=== PATIENT | male | born 1950 | race Caucasian/White ===

== ENCOUNTER 2018-12-24 12:11 | Day surgery (SDC) | payer MEDICARE, OTHER ==
[2018-12-23 11:18] LABS: BASOPHILS # (AUTO) 0.1 X10'3 (0-0.2); BASOPHILS % (AUTO) 1.2 % (0-1); EOSINOPHILS # (AUTO) 0.2 X10'3 (0-0.9); EOSINOPHILS % (AUTO) 3.9 % (0-6); LYMPHOCYTES # (AUTO) 1.7 X10'3 (1.1-4.8); LYMPHOCYTES % (AUTO) 30.3 % (21-51); MEAN CORPUSCULAR HEMOGLOBIN 30.6 PG (27.0-31.0); MEAN CORPUSCULAR HGB CONC 33.8 g/dL (33.0-36.5); MEAN CORPUSCULAR VOLUME 90.5 FL (78-98); MEAN PLATELET VOLUME 7.7 FL (7.4-10.4); MONOCYTES # (AUTO) 0.5 X10'3 (0-0.9); MONOCYTES % (AUTO) 8.9 % (2-12); NEUTROPHILS # (AUTO) 3.2 X10'3 (1.8-7.7); NEUTROPHILS % (AUTO) 55.7 % (42-75); PRE OP HEMATOCRIT 39.9 % (42.0-52.0); PRE OP HEMOGLOBIN 13.5 g/dL (14.0-17.9); PRE OP PLATELET COUNT 238 X10'3 (140-440); RED BLOOD COUNT 4.41 X10'6 (4.70-6.10); RED CELL DISTRIBUTION WIDTH 13.6 % (11.5-14.5)
[2018-12-23 11:29] LABS: CLARITY,URINE CLEAR (Clear); COLOR,URINE STRAW (Yellow); GLUCOSE, URINE NEGATIVE (Neg); KETONES,URINE NEGATIVE (Neg); LEUKOCYTE ESTERASE ,URINE NEGATIVE (Neg); NITRITES, URINE NEGATIVE (Neg); OCCULT BLOOD,URINE SMALL (Neg); PROTEIN,URINE NEGATIVE (Neg); UROBILINOGEN,URINE 0.2 E.U/dL (0.2-1.0)
[2018-12-23 11:31] LABS: UA COLLECTION TYPE CLN CATCH MIDSTREAM
[2018-12-23 11:36] LABS: ALBUMIN 3.5 G/DL (3.4-5.0); ALBUMIN/GLOBULIN RATIO 0.9 (1.1-1.5); ALKALINE PHOSPHATASE 64 IU/L (46-116); BLOOD UREA NITROGEN 20 MG/DL (7-18); BUN/CREATININE RATIO 20.4 (5.4-32.0); CALCIUM 9.3 MG/DL (8.5-10.1); CHLORIDE 108 MMOL/L (99-107); CREATININE 0.98 MG/DL (0.60-1.10); PRE OP ALT 22 U/L (30-65); PRE OP ANION GAP 9 (8-16); PRE OP AST 21 U/L (10-37); PRE OP BILIRUB, TOTAL 0.4 MG/DL (0.0-1.0); PRE OP GLUCOSE 85 MG/DL (70-104); PRE OP POTASSIUM 4.1 MMOL/L (3.4-5.1); PRE OP SODIUM 144 MMOL/L (135-145); TOTAL CARBON DIOXIDE 27.2 MMOL/L (24-32); TOTAL PROTEIN 7.3 G/DL (6.4-8.2); eGFR 76 ML/MIN
[2018-12-23 11:38] LABS: PRE OP PROTIME 10.5 SECONDS (9.0-12.0)
[2018-12-23 11:50] LABS: BACTERIA,URINE NONE SEEN /HPF (Neg); MUCUS STRANDS NONE SEEN /LPF (Neg); SQUAMOUS EPITHELIAL CELL,UR NONE SEEN /LPF (FEW); WBC,URINE NONE SEEN /HPF (0-4)
[~2018-12-24] VITALS: Ht 175.3 cm; Wt 86.5 kg
[~2018-12-24 12:11] MED LIST: APIX5TAB3 PO; CALC-854 PO; DOCUMENT DATE & TIME OF BETA-BLOCKER PO ONE; FLEC50TA PO; HYDR-3972 PO; LEUP7.5D4 IM; MEGE40TA27 PO; METO25TA6 PO; OMEG1CAP46 PO; OMEP20TA5 PO; SERT50TA PO; TAMS0.4C32 PO; cefazolin/dext.iso 2gm/100 ML IV ONE; famotidine 20mg tablet PO ONE; ringers solution, lacted 1,000 ML IV SCH
[2018-12-24 12:30] VITALS: BP_SYST 123; BP_SYST 71; BP_DIAS 71
[2018-12-24] MEDS ORDERED: BUPIVAcaine/PF 2.5mg/ml (0.25%) 10ml vial ONE (13:59)
[2018-12-24] MEDS ORDERED: LIDOcaine 1% 30ml preserv. free vial ONE (13:59)
[2018-12-24] MEDS ORDERED: fentaNYL/PF 50MCG/1 ML 2ML syringe ONE (14:50)
[2018-12-24] MEDS ORDERED: MIDAZolam 5mg/5ml vial ONE (14:51)
[2018-12-24] MEDS ORDERED: ringers solution, lacted 1,000 ML IV SCH (15:19)
[2018-12-24] MEDS ORDERED: meperidine/PF 25mg/ml syringe IV PRN ×3 (15:20)
[2018-12-24] MEDS ORDERED: ondansetron/PF 4mg/2ml inj IV PRN (15:20)
[2018-12-24] MEDS ORDERED: proCHLORperazine 10 MG/2 ml inj IV PRN (15:20)
[2018-12-24] MEDS ORDERED: morphine 4 MG/ML inj SYRINge IV PRN ×2 (15:20)
[2018-12-24 15:31] VITALS: BP 138/72
--- NOTE | 2018-12-24 15:31 | NUR ---
Received from OR via , accompanied by Anesthesiologist DR FLORES and report given by Anesthesiolgist. AWAKE AND JING PAIN. VITALS STABLE. DRESSING DI.
[2018-12-24 15:41] VITALS: BP 121/62
[2018-12-24 15:51] VITALS: BP 124/67
[2018-12-24 16:01] VITALS: BP 132/66
--- NOTE | 2018-12-24 16:21 | NUR ---
AWAKE AND ORIENTED. VITALS STABLE. DRESSING DI. JING PAIN. HOME WITH A FRIEND AT THIS TIME.
== END 2018-12-24 16:24 | disposition home or self-care (01) ==
LOC: PAS 12:11
PROVIDERS: ATTEND Surgery
DX: L72.3 Sebaceous cyst (principal); L08.89 Other specified local infections of the skin and subcutaneous tissue; I48.91 Unspecified atrial fibrillation; F32.9 Major depressive disorder, single episode, unspecified; K21.9 Gastro-esophageal reflux disease without esophagitis; Z87.891 Personal history of nicotine dependence; Z79.899 Other long term (current) drug therapy
CPT/HCPCS: 11403; 36415; 80053; 81001; 82948; 85025; 85610; 85730; 93005; A6449; J0690; J2250; J3010; J3490; 88305; A7000; J7120

== ENCOUNTER 2019-06-24 08:12 | Emergency (ER) | payer MEDICARE, OTHER ==
[~2019-06-24] VITALS: Ht 175.3 cm; Wt 80.9 kg
[~2019-06-24 08:12] MED LIST changes: -DOCUMENT DATE & TIME OF BETA-BLOCKER PO ONE; -cefazolin/dext.iso 2gm/100 ML IV ONE; -famotidine 20mg tablet PO ONE; -ringers solution, lacted 1,000 ML IV SCH
[2019-06-24] MEDS ORDERED: adenosine 3mg/ml 2ml vial IV ONE ×2 (08:25)
[2019-06-24] MEDS ORDERED: normal saline 1000ml 1,000 ML IV ONE (08:25)
[2019-06-24] MEDS ORDERED: magnesium 2GM in 50ml NS 50 ML IV ONE (08:35)
[2019-06-24 08:45] LABS: WHITE BLOOD COUNT 7.9 X10'3 (4.5-11.0)
[2019-06-24 08:46] LABS: BASOPHILS # (AUTO) 0.1 X10'3 (0-0.2); BASOPHILS % (AUTO) 1.3 % (0-1); EOSINOPHILS # (AUTO) 0.2 X10'3 (0-0.9); EOSINOPHILS % (AUTO) 2.1 % (0-6); HEMATOCRIT 42.6 % (42.0-52.0); HEMOGLOBIN 14.5 g/dl (14.0-17.9); LYMPHOCYTES # (AUTO) 2.2 X10'3 (1.1-4.8); LYMPHOCYTES % (AUTO) 28.2 % (21-51); MEAN CORPUSCULAR HEMOGLOBIN 31.7 PG (27.0-31.0); MEAN CORPUSCULAR HGB CONC 34.1 g/dL (33.0-36.5); MEAN PLATELET VOLUME 7.6 FL (7.4-10.4); MONOCYTES # (AUTO) 0.6 X10'3 (0-0.9); MONOCYTES % (AUTO) 7.2 % (2-12); NEUTROPHILS # (AUTO) 4.8 X10'3 (1.8-7.7); NEUTROPHILS % (AUTO) 61.2 % (42-75); PLATELET COUNT 245 X10'3 (140-440); RED BLOOD COUNT 4.58 X10'6 (4.70-6.10); RED CELL DISTRIBUTION WIDTH 13.9 % (11.5-14.5)
[2019-06-24 08:58] LABS: ALANINE AMINOTRANSFERASE 19 U/L (12-78); ALBUMIN 3.8 G/DL (3.4-5.0); ALBUMIN/GLOBULIN RATIO 1.1 (1.1-1.5); ALKALINE PHOSPHATASE 67 IU/L (46-116); ANION GAP 14 (8-16); ASPARTATE AMINO TRANSFERASE 9 U/L (10-37); BILIRUBIN,TOTAL 0.4 MG/DL (0.1-1.0); BLOOD UREA NITROGEN 18 MG/DL (7-18); BUN/CREATININE RATIO 12.6 (5.4-32.0); CALCIUM 8.8 MG/DL (8.5-10.1); CHLORIDE 106 MMOL/L (99-107); CREATININE 1.43 MG/DL (0.60-1.10); GLUCOSE 204 MG/DL (70-104); MAGNESIUM 1.9 MG/DL (1.5-2.4); POTASSIUM 4.1 MMOL/L (3.5-5.1); SODIUM 139 MMOL/L (135-145); TOTAL CARBON DIOXIDE 19.1 MMOL/L (24-32); TOTAL PROTEIN 7.4 G/DL (6.4-8.2); eGFR 49 ML/MIN
[2019-06-24] MEDS ORDERED: normal saline 1000ML IV soln IVB ONE (09:20)
--- NOTE | 2019-06-24 09:40 | NUR ---
BREAKING PRIMARY RN, PT IS UP TO THE BR HAVING BM
[2019-06-24 10:39] VITALS: BP 107/71
== END 2019-06-24 10:41 | disposition home or self-care (01) ==
LOC: ER 08:13
DX: I47.1 Supraventricular tachycardia (principal); R42 Dizziness and giddiness; E78.00 Pure hypercholesterolemia, unspecified; K21.9 Gastro-esophageal reflux disease without esophagitis; G89.29 Other chronic pain; Z98.890 Other specified postprocedural states; Z79.899 Other long term (current) drug therapy
CPT/HCPCS: 36415; 71045; 80053; 83735; 85025; 93005; 96361; 96365; 99284; J3475; J7030; J7040

== ENCOUNTER → 2019-12-02 | Day surgery (SDC) | payer MEDICARE, OTHER ==
[2019-11-28 15:37] LABS: BASOPHILS # (AUTO) 0.1 X10'3 (0-0.2); BASOPHILS % (AUTO) 1.3 % (0-1); CLARITY,URINE CLEAR (Clear); COLOR,URINE YELLOW (Yellow); EOSINOPHILS # (AUTO) 0.2 X10'3 (0-0.9); EOSINOPHILS % (AUTO) 3.4 % (0-6); GLUCOSE, URINE NEGATIVE (Neg); HEMATOCRIT 37.5 % (42.0-52.0); HEMOGLOBIN 13.2 g/dl (14.0-17.9); KETONES,URINE NEGATIVE (Neg); LEUKOCYTE ESTERASE ,URINE NEGATIVE (Neg); LYMPHOCYTES # (AUTO) 2.8 X10'3 (1.1-4.8); LYMPHOCYTES % (AUTO) 39.3 % (21-51); MEAN CORPUSCULAR HEMOGLOBIN 31.9 PG (27.0-31.0); MEAN CORPUSCULAR HGB CONC 35.1 g/dL (33.0-36.5); MEAN CORPUSCULAR VOLUME 90.8 FL (78-98); MEAN PLATELET VOLUME 6.9 FL (7.4-10.4); MONOCYTES # (AUTO) 0.7 X10'3 (0-0.9); NEUTROPHILS # (AUTO) 3.3 X10'3 (1.8-7.7); NITRITES, URINE NEGATIVE (Neg); OCCULT BLOOD,URINE MODERATE (Neg); PH,URINE 5.5 (4.8-8.0); PLATELET COUNT 223 X10'3 (140-440); PROTEIN,URINE NEGATIVE (Neg); RED BLOOD COUNT 4.13 X10'6 (4.70-6.10); UROBILINOGEN,URINE 0.2 E.U/dL (0.2-1.0); WHITE BLOOD COUNT 7.2 X10'3 (4.5-11.0)
[2019-11-28 15:41] LABS: UA COLLECTION TYPE NON-SPECIFIED
[2019-11-28 15:42] LABS: BACTERIA,URINE NONE SEEN /HPF (Neg); MUCUS STRANDS FEW /LPF (Neg); RBC,URINE 0-2 /HPF (0-2); SQUAMOUS EPITHELIAL CELL,UR FEW /LPF (FEW); WBC,URINE NONE SEEN /HPF (0-4)
[2019-11-28 15:52] LABS: ALANINE AMINOTRANSFERASE 19 U/L (12-78); ALBUMIN 3.8 G/DL (3.4-5.0); ALKALINE PHOSPHATASE 71 IU/L (46-116); ANION GAP 6 (8-16); ASPARTATE AMINO TRANSFERASE 12 U/L (10-37); BILIRUBIN,TOTAL 0.4 MG/DL (0.1-1.0); BLOOD UREA NITROGEN 11 MG/DL (7-18); BUN/CREATININE RATIO 10.4 (5.4-32.0); CHLORIDE 107 MMOL/L (99-107); CREATININE 1.06 MG/DL (0.60-1.10); GLUCOSE 101 MG/DL (70-104); POTASSIUM 3.6 MMOL/L (3.5-5.1); PRE OP PROTIME 10.5 SECONDS (9.0-12.0); SODIUM 142 MMOL/L (135-145); TOTAL CARBON DIOXIDE 29.5 MMOL/L (24-32); TOTAL PROTEIN 7.5 G/DL (6.4-8.2); eGFR 69 ML/MIN
[2019-12-02] VITALS (9 sets, daily range): BP systolic 110–135; BP diastolic 49–72
[~2019-12-02] VITALS: Ht 175.3 cm; Wt 86.2 kg
[~2019-12-02] MED LIST changes: -APIX5TAB3 PO; +APIX5TAB5 PO; +CHOL100046 PO; +DOCUMENT DATE & TIME OF BETA-BLOCKER PO ONE; +EPI SQ ONE; +EPINEPHRINE SQ ONE; +HYDROmorphone inj. 0.5 MG/0.5 ML DISP.SYRIN IV PRN; +LIDOCAINE 1% SQ ONE; +LIDOCAINE 1.5% SQ ONE; +LIDOcaine 1% (10mg/ml) 2ml vial ONE; +LIDOcaine 2% (20mg/ml) 5ml vial ONE; -MEGE40TA27 PO; +MEGE40TA5 PO; +NORMAL SALINE SQ ONE; +SODIUM CHLORIDE SQ ONE; +acetaminophen 1000 MG/100ml vial IV ONE; +cefazolin/dext.iso 2gm/50ml 50 ML IV ONE; +ePHEDrine 50MG/ML INJ. ONE; +famotidine 20mg tablet PO ONE; +fentaNYL/PF 50MCG/1 ML 2ML syringe ONE; +heparin sodium, porcine/PF 100unit/ml 5ML syringe ONE; +meperidine/PF 25mg/ml syringe IV PRN; +midazolam 2 mg/2 ml injection ONE; +morphine 2 MG/ML inj. syringe IV PRN; +morphine 4 MG/ML inj SYRINge IV PRN; +ondansetron/PF 4mg/2ml inj IV PRN; +proCHLORperazine 10 MG/2 ml inj IV PRN; +propofol inj 20 ML IV ONE; +ringers solution, lacted 1,000 ML IV SCH; +sevoflurane 250ml liquid IH ONE
--- NOTE | 2019-12-02 09:47 | NUR ---
Received from OR via , accompanied by Anesthesiologist DR PERDOMO and report given by Anesthesiolgist. AWAKENS TO VOICE. VITALS STABLE. DRESSING DI. JING PAIN.
--- NOTE | 2019-12-02 11:07 | NUR ---
AWAKE AND ORIENTED. VITALS STABLE. DRESSING DI. JING PAIN. HOME WITH A FRIEND AT THIS TIME.
== END | disposition home or self-care (01) ==
LOC: PAS 06:10
PROVIDERS: ATTEND Surgery
DX: I83.891 Varicose veins of right lower extremity with other complications (principal); M79.604 Pain in right leg; Z79.899 Other long term (current) drug therapy; M19.90 Unspecified osteoarthritis, unspecified site; I48.91 Unspecified atrial fibrillation
CPT/HCPCS: 36415; 36475; 76942; 80053; 81001; 82948; 85025; 85610; 85730; 93971; C1769; C1888; C1894; J0131; J1642; J2001; J2250; J2704; J3010; A4618; A6258; A6446; A6449; A7000; J7120

== ENCOUNTER 2020-01-28 06:02 | Day surgery (SDC) | payer MEDICARE, OTHER ==
[2020-01-27 09:43] LABS: BASOPHILS # (AUTO) 0.1 X10'3 (0-0.2); BASOPHILS % (AUTO) 1.2 % (0-1); EOSINOPHILS # (AUTO) 0.2 X10'3 (0-0.9); EOSINOPHILS % (AUTO) 3.5 % (0-6); HEMATOCRIT 38.2 % (42.0-52.0); LYMPHOCYTES # (AUTO) 1.8 X10'3 (1.1-4.8); LYMPHOCYTES % (AUTO) 31.2 % (21-51); MEAN CORPUSCULAR HEMOGLOBIN 31.6 PG (27.0-31.0); MEAN CORPUSCULAR HGB CONC 33.9 g/dL (33.0-36.5); MEAN CORPUSCULAR VOLUME 93.1 FL (78-98); MEAN PLATELET VOLUME 7.3 FL (7.4-10.4); MONOCYTES # (AUTO) 0.5 X10'3 (0-0.9); MONOCYTES % (AUTO) 8.8 % (2-12); NEUTROPHILS # (AUTO) 3.2 X10'3 (1.8-7.7); NEUTROPHILS % (AUTO) 55.3 % (42-75); PLATELET COUNT 188 X10'3 (140-440); RED BLOOD COUNT 4.11 X10'6 (4.70-6.10); RED CELL DISTRIBUTION WIDTH 13.3 % (11.5-14.5); WHITE BLOOD COUNT 5.7 X10'3 (4.5-11.0)
[2020-01-27 09:58] LABS: ALBUMIN 3.4 G/DL (3.4-5.0); ANION GAP 7 (8-16); BLOOD UREA NITROGEN 19 MG/DL (7-18); BUN/CREATININE RATIO 15.7 (5.4-32.0); CALCIUM 8.8 MG/DL (8.5-10.1); CHLORIDE 107 MMOL/L (99-107); CREATININE 1.21 MG/DL (0.60-1.10); GLUCOSE 92 MG/DL (70-104); POTASSIUM 4.1 MMOL/L (3.5-5.1); SODIUM 141 MMOL/L (135-145); TOTAL CARBON DIOXIDE 27.1 MMOL/L (24-32); eGFR 59 ML/MIN
[2020-01-27 09:59] LABS: PARTIAL THROMBOPLASTIN TIME 27 SECONDS (22-32)
[2020-01-28] VITALS (13 sets, daily range): BP systolic 106–131; BP diastolic 41–59
[~2020-01-28] VITALS: Ht 175.3 cm; Wt 91.0 kg
[~2020-01-28 06:02] MED LIST changes: -DOCUMENT DATE & TIME OF BETA-BLOCKER PO ONE; -EPI SQ ONE; -EPINEPHRINE SQ ONE; -HYDROmorphone inj. 0.5 MG/0.5 ML DISP.SYRIN IV PRN; -LIDOCAINE 1% SQ ONE; -LIDOCAINE 1.5% SQ ONE; -LIDOcaine 1% (10mg/ml) 2ml vial ONE; -LIDOcaine 2% (20mg/ml) 5ml vial ONE; -NORMAL SALINE SQ ONE; -SODIUM CHLORIDE SQ ONE; -acetaminophen 1000 MG/100ml vial IV ONE; -cefazolin/dext.iso 2gm/50ml 50 ML IV ONE; -ePHEDrine 50MG/ML INJ. ONE; -famotidine 20mg tablet PO ONE; -fentaNYL/PF 50MCG/1 ML 2ML syringe ONE; -heparin sodium, porcine/PF 100unit/ml 5ML syringe ONE; -meperidine/PF 25mg/ml syringe IV PRN; -midazolam 2 mg/2 ml injection ONE; -morphine 2 MG/ML inj. syringe IV PRN; -morphine 4 MG/ML inj SYRINge IV PRN; -ondansetron/PF 4mg/2ml inj IV PRN; -proCHLORperazine 10 MG/2 ml inj IV PRN; -propofol inj 20 ML IV ONE; -ringers solution, lacted 1,000 ML IV SCH; -sevoflurane 250ml liquid IH ONE
[2020-01-28] MEDS ORDERED: diphenhydrAMINE 25mg capsule PO PRN (06:20)
[2020-01-28] MEDS ORDERED: LORazepam 0.5 MG tablet PO PRN (06:20)
[2020-01-28] MEDS ORDERED: normal saline 1,000 ML IV SCH (06:40)
[2020-01-28] MEDS ORDERED: acetylcysteine 200 MG/ml 4ml vial PO PRN (06:40)
[2020-01-28] MEDS ORDERED: LIDOcaine/PRILOcaine 5gm cream TP ONE (06:40)
[2020-01-28] MEDS ORDERED: sodium bicarbonate (8.4%) inj. 75 ML in dextrose 5%-water 500 ML IV ONE (06:40)
[2020-01-28] MEDS ORDERED: verapamil 2.5 mg/ml inj IV ONE (07:33)
[2020-01-28] MEDS ORDERED: nitroGLYCERIN-Tridil 50MG/D5W 250 ML IV ONE (07:33)
[2020-01-28] MEDS ORDERED: midazolam 2 mg/2 ml injection ONE (07:34)
[2020-01-28] MEDS ORDERED: iohexol 350MG/ML 100ml bottle IV ONE (07:34)
[2020-01-28] MEDS ORDERED: heparin 1,000unit/ml 10ml vial 10 ML ONE (07:34)
[2020-01-28] MEDS ORDERED: iohexol 350 MG/ML 50ML vial IV ONE (07:34)
[2020-01-28] MEDS ORDERED: LIDOcaine 1% (10mg/ml)w/preservative injection 20ml MDV ONE (07:34)
[2020-01-28] MEDS ORDERED: fentaNYL/PF 50MCG/1 ML 2ML syringe ONE (07:34)
[2020-01-28 09:36] LABS: ISTAT HGB ART 10.9 g/dl (14.0-18.0); ISTAT Hct ART 32 %PCV (42-52); ISTAT O2 SATURATION ARTERIAL 94 % (95-98); ISTAT SOURCE ART
[2020-01-28 09:36] LABS: ISTAT Hct MIX 33 %PCV (42-52); ISTAT O2 SATURATION MIX VENOUS 69 % (60-80); ISTAT SOURCE MIX
== END 2020-01-28 15:00 | disposition home or self-care (01) ==
LOC: U 06:02 → MED 3N 06:02 → U 15:00
PROVIDERS: ATTEND Internal Medicine Cardiovascular Disease
DX: R94.39 Abnormal result of other cardiovascular function study (principal); I25.10 Atherosclerotic heart disease of native coronary artery without angina pectoris; I10 Essential (primary) hypertension; E78.5 Hyperlipidemia, unspecified; I48.0 Paroxysmal atrial fibrillation; K21.9 Gastro-esophageal reflux disease without esophagitis; I35.0 Nonrheumatic aortic (valve) stenosis; I47.1 Supraventricular tachycardia; Z85.46 Personal history of malignant neoplasm of prostate; Z79.899 Other long term (current) drug therapy; Z98.890 Other specified postprocedural states; Z95.1 Presence of aortocoronary bypass graft
CPT/HCPCS: 36415; 80048; 82803; 85014; 85025; 85610; 85730; 93005; 93460; 93567; 99152; 99153; C1769; C1894; J1644; J2001; J2250; J3010; J7030; Q0163; Q9967; A5120; J3490

== ENCOUNTER 2020-09-28 08:46 | Outpatient (CLI) | payer MEDICARE, OTHER ==
[~2020-09-28 08:46] MED LIST changes: -LEUP7.5D4 IM; -MEGE40TA5 PO
== END 2020-09-28 23:59 | disposition home or self-care (01) ==
LOC: RAD 08:46
PROVIDERS: ATTEND Family Medicine
DX: M17.12 Unilateral primary osteoarthritis, left knee (principal); M48.061 Spinal stenosis, lumbar region without neurogenic claudication; M47.816 Spondylosis without myelopathy or radiculopathy, lumbar region
CPT/HCPCS: 72148; 73560

== ENCOUNTER 2020-10-20 11:08 | Emergency (ER) | payer MEDICARE, OTHER ==
[~2020-10-20] VITALS: Ht 175.3 cm; Wt 88.6 kg
[2020-10-20 11:29] VITALS: BP 112/66
[2020-10-20] MEDS ORDERED: BENZ-16 PO (13:07)
== END 2020-10-20 13:50 | disposition home or self-care (01) ==
LOC: ER 11:09
DX: U07.1 COVID-19 (principal); J12.9 Viral pneumonia, unspecified; R51.9 Headache, unspecified; R61 Generalized hyperhidrosis; R05 Cough; R53.83 Other fatigue; R50.9 Fever, unspecified; E78.00 Pure hypercholesterolemia, unspecified; K21.9 Gastro-esophageal reflux disease without esophagitis; G89.29 Other chronic pain; Z85.9 Personal history of malignant neoplasm, unspecified; Z98.890 Other specified postprocedural states; Z79.899 Other long term (current) drug therapy
CPT/HCPCS: 71045; 99283

== ENCOUNTER 2022-02-20 09:01 | Inpatient (IN) | payer MEDICARE, OTHER ==
[~2022-02-20] VITALS: Ht 175.3 cm; Wt 90.9 kg
[~2022-02-20 09:01] MED LIST changes: +LOP25T PO; -METO25TA6 PO; +OMEP20TA43 PO; -OMEP20TA5 PO
[2022-02-20] MEDS ORDERED: morphine 4 MG/ML inj SYRINge IV ONE (10:05)
[2022-02-20] MEDS ORDERED: ondansetron/PF 4mg/2ml inj IV ONE (10:05)
[2022-02-20] MEDS ORDERED: famotidine/PF 10 mg/ml inj IV ONE (10:05)
[2022-02-20] MEDS ORDERED: pantoprazole 40 MG vial IV ONE (10:05)
[2022-02-20 10:45] LABS: BASOPHILS % (AUTO) 0.2 % (0-1); EOSINOPHILS % (AUTO) 0.4 % (0-6); HEMATOCRIT 39.2 % (42.0-52.0); HEMOGLOBIN 13.4 g/dl (14.0-17.9); LYMPHOCYTES # (AUTO) 0.8 X10'3 (1.1-4.8); LYMPHOCYTES % (AUTO) 9.1 % (21-51); MEAN CORPUSCULAR HEMOGLOBIN 31.3 PG (27.0-31.0); MEAN PLATELET VOLUME 7.3 FL (7.4-10.4); MONOCYTES # (AUTO) 0.5 X10'3 (0-0.9); MONOCYTES % (AUTO) 5.4 % (2-12); NEUTROPHILS # (AUTO) 7.5 X10'3 (1.8-7.7); NEUTROPHILS % (AUTO) 84.9 % (42-75); PLATELET COUNT 172 X10'3 (140-440); RED BLOOD COUNT 4.27 X10'6 (4.70-6.10); RED CELL DISTRIBUTION WIDTH 14.9 % (11.5-14.5); WHITE BLOOD COUNT 8.8 X10'3 (4.5-11.0)
[2022-02-20 10:57] LABS: ALANINE AMINOTRANSFERASE 53 U/L (12-78); ALBUMIN 3.6 G/DL (3.4-5.0); ALBUMIN/GLOBULIN RATIO 1.1 (1.1-1.5); ALKALINE PHOSPHATASE 46 IU/L (46-116); AMYLASE 74 U/L (25-115); ANION GAP 13 (8-16); ASPARTATE AMINO TRANSFERASE 61 U/L (10-37); BILIRUBIN,TOTAL 2.9 MG/DL (0.1-1.0); BLOOD UREA NITROGEN 16 MG/DL (7-18); BUN/CREATININE RATIO 14.4 (5.4-32.0); CALCIUM 9.3 MG/DL (8.5-10.1); CHLORIDE 102 MMOL/L (99-107); CREATININE 1.11 MG/DL (0.60-1.10); ETHANOL < 0.010 GM/DL (0.0-0.010); GLUCOSE 155 MG/DL (70-104); LIPASE 501 U/L (73-393); SODIUM 139 MMOL/L (135-145); TOTAL PROTEIN 6.9 G/DL (6.4-8.2); eGFR 65 ML/MIN
[2022-02-20] MEDS ORDERED: pantoprazole 40MG/NS 100ML BAG 100 ML IV ONE (12:00)
[2022-02-20] MEDS: POTASSIUM BICARB 20meq eff tab 20 MEQ TABLET.EFF PO SCH (12:11)
[2022-02-20 12:23] LABS: UA COLLECTION TYPE URINAL
[2022-02-20 12:24] LABS: CLARITY,URINE CLEAR (Clear); COLOR,URINE YELLOW (Yellow); GLUCOSE, URINE NEGATIVE (Neg); KETONES,URINE TRACE mg/dl (Neg); LEUKOCYTE ESTERASE ,URINE NEGATIVE (Neg); NITRITES, URINE NEGATIVE (Neg); OCCULT BLOOD,URINE MODERATE (Neg); PH,URINE 6.5 (4.8-8.0); PROTEIN,URINE TRACE mg/dl (Neg)
[2022-02-20 12:44] LABS: BACTERIA,URINE NONE SEEN /HPF (Neg); SQUAMOUS EPITHELIAL CELL,UR FEW /LPF (FEW); WBC,URINE 0-4 /HPF (0-4)
[2022-02-20] MEDS ORDERED: magnesium 4gm in 100ml NS 100 ML IV PRN (12:55)
[2022-02-20] MEDS ORDERED: magnesium hydroxide 30ml (MOM) UD suspension PO PRN (12:55)
[2022-02-20] MEDS ORDERED: magnesium 2GM in 50ml NS 50 ML IV PRN (12:55)
[2022-02-20] MEDS ORDERED: mag hydrox/Alum hydrox/simeth 30ml oral suspension PO PRN (12:55)
[2022-02-20] MEDS ORDERED: POTASSIUM BICARB 20meq eff tab 20 MEQ TABLET.EFF PO PRN ×2 (12:55)
[2022-02-20] MEDS ORDERED: magnesium Cl slow-release 64mg tablet PO PRN (12:55)
[2022-02-20] MEDS ORDERED: acetaminophen 325mg tablet PO PRN (12:55)
[2022-02-20] MEDS ORDERED: ondansetron/PF 4mg/2ml inj IV PRN (12:55)
[2022-02-20 13:44] LABS: MAGNESIUM 1.9 MG/DL (1.5-2.4); POTASSIUM 3.3 MMOL/L (3.5-5.1)
[2022-02-20] MEDS ORDERED: FENO54TA PO (13:45)
[2022-02-20] MEDS: potassium Cl 20mEq in NS 1,000 ML IV SCH ×2 (15:15→21:26)
[2022-02-20] MEDS ORDERED: dextrose 50%-water 50ml dispensing syringe IV PRN (16:10)
[2022-02-20] MEDS ORDERED: LORazepam 2 mg/ml vial IV PRN (16:10)
[2022-02-20] MEDS ORDERED: haloperidol 5mg tablet PO PRN (16:10)
[2022-02-20] MEDS ORDERED: haloperidol lactate 5mg/ml inj IM PRN (16:10)
[2022-02-20] MEDS ORDERED: HYDROcodone/acetaminophen 10/325mg tab PO PRN (18:35)
--- NOTE | 2022-02-20 19:45 | NUR ---
Patient in room PCU 3019. I have received report from Dagoberto, in ER and had the opportunity to ask questions and assume patient care.
[2022-02-20 20:00] VITALS: BP 131/56
[2022-02-20] MEDS: K and/or MAG REPLACEMENT MC SCH (20:00)
[2022-02-20] MEDS: flecainide 50mg tablet PO SCH (20:00)
[2022-02-20] MEDS: docusate sod 100mg capsule PO SCH (20:00)
--- NOTE | 2022-02-20 20:00 | NUR ---
Patient arrived to room 3019 from ER via gurney. Patient stable. Alert and oriented x 4. No distress noted.
[2022-02-20] MEDS: tamsulosin 0.4mg capsule PO SCH (21:24)
[2022-02-20] MEDS: metoprolol tartrate 25mg tablet PO SCH (21:25)
[2022-02-20] MEDS: thiamine 100mg/ml 2ml inj. IV SCH (21:26)
[2022-02-20] MEDS: pantoprazole 40MG/NS 100ML BAG 100 ML IV SCH (21:26)
[2022-02-20] MEDS: potassium CL 10mEq/100ml bag 100 ML IV PRN (21:41)
[2022-02-20 22:00] VITALS: BP 119/94
--- NOTE | 2022-02-20 22:37 | NUR ---
Called Dr. Rubio regarding holding patient's Flecanide Acetate. Instructed by Dr. Rubio to hold Flecanide Acetate until patient's Potassium is in normal range.
[2022-02-21] VITALS (11 sets, daily range): BP systolic 107–179; BP diastolic 47–76
[2022-02-21] MEDS: potassium CL 10mEq/100ml bag 100 ML IV PRN ×3 (00:15→20:41)
[2022-02-21] MEDS ORDERED: nicotine prolacrilex 2mg gum BC PRN (00:45)
[2022-02-21] MEDS: pantoprazole 40MG/NS 100ML BAG 100 ML IV SCH ×4 (02:09→23:16)
[2022-02-21 07:14] LABS: BASOPHILS % (AUTO) 0.9 % (0-1); EOSINOPHILS # (AUTO) 0.2 X10'3 (0-0.9); EOSINOPHILS % (AUTO) 3.1 % (0-6); HEMOGLOBIN 11.8 g/dl (14.0-17.9); LYMPHOCYTES % (AUTO) 20.2 % (21-51); MEAN CORPUSCULAR HEMOGLOBIN 31.3 PG (27.0-31.0); MEAN CORPUSCULAR HGB CONC 33.7 g/dL (33.0-36.5); MEAN CORPUSCULAR VOLUME 92.9 FL (78-98); MEAN PLATELET VOLUME 7.5 FL (7.4-10.4); MONOCYTES # (AUTO) 0.3 X10'3 (0-0.9); MONOCYTES % (AUTO) 7.2 % (2-12); NEUTROPHILS # (AUTO) 3.3 X10'3 (1.8-7.7); NEUTROPHILS % (AUTO) 68.6 % (42-75); PLATELET COUNT 128 X10'3 (140-440); RED BLOOD COUNT 3.77 X10'6 (4.70-6.10); RED CELL DISTRIBUTION WIDTH 15.3 % (11.5-14.5); WHITE BLOOD COUNT 4.8 X10'3 (4.5-11.0)
[2022-02-21 07:32] LABS: ALANINE AMINOTRANSFERASE 52 U/L (12-78); ALBUMIN/GLOBULIN RATIO 1.1 (1.1-1.5); ALKALINE PHOSPHATASE 39 IU/L (46-116); ANION GAP 10 (8-16); ASPARTATE AMINO TRANSFERASE 54 U/L (10-37); BILIRUBIN,TOTAL 1.6 MG/DL (0.1-1.0); BLOOD UREA NITROGEN 13 MG/DL (7-18); BUN/CREATININE RATIO 13.1 (5.4-32.0); CALCIUM 8.1 MG/DL (8.5-10.1); CHLORIDE 107 MMOL/L (99-107); CREATININE 0.99 MG/DL (0.60-1.10); GLUCOSE 97 MG/DL (70-104); POTASSIUM 3.3 MMOL/L (3.5-5.1); SODIUM 140 MMOL/L (135-145); TOTAL PROTEIN 5.8 G/DL (6.4-8.2); eGFR 74 ML/MIN
[2022-02-21] MEDS: pantoprazole 40mg Tablet.DR PO SCH (08:00)
[2022-02-21] MEDS: FENOFIBRATE 54 MG PO SCH (08:00)
[2022-02-21] MEDS: OMEGA-3/DHA/EPA/FISH OIL 1 EACH CAPSULE.DR PO SCH (08:00)
[2022-02-21] MEDS: potassium Cl 20mEq in NS 1,000 ML IV SCH ×2 (08:31→23:16)
[2022-02-21] MEDS: thiamine 100mg/ml 2ml inj. IV SCH ×3 (08:36→20:26)
[2022-02-21] MEDS: flecainide 50mg tablet PO SCH ×2 (08:44→19:12)
[2022-02-21] MEDS: folic acid 1mg/0.2ml inj IV SCH (08:44)
[2022-02-21] MEDS: calcium carbonate/vitamin D3 tablet PO SCH (08:46)
[2022-02-21] MEDS: sertraline 50mg tablet PO SCH (08:46)
[2022-02-21] MEDS: tamsulosin 0.4mg capsule PO SCH ×2 (08:47→20:26)
[2022-02-21] MEDS: docusate sod 100mg capsule PO SCH ×2 (08:48→19:16)
[2022-02-21] MEDS: metoprolol tartrate 25mg tablet PO SCH ×2 (08:48→20:41)
[2022-02-21] MEDS ORDERED: ondansetron 4mg rapidly disintigrating tab PO PRN (15:05)
[2022-02-21] MEDS: POTASSIUM BICARB 20meq eff tab 20 MEQ TABLET.EFF PO SCH (15:44)
[2022-02-21] MEDS ORDERED: fentaNYL/PF 50MCG/1 ML 2ML syringe ONE (16:20)
[2022-02-21] MEDS ORDERED: MIDAZolam 1 MG/ML 5ML VIAL ONE (16:20)
[2022-02-21] MEDS ORDERED: LIDOcaine Viscous 15ml cup ONE (16:21)
--- NOTE | 2022-02-21 18:15 | NUR ---
Patient in room PCU 3019. I have received report from Condon and had the opportunity to ask questions and assume patient care.
--- NOTE | 2022-02-21 18:15 | NUR ---
Patient in room [facility] 3019. I have received report from and had the opportunity to ask questions and assume patient care. Addendum: 02/22/22 at 0611 by Tiffani Leonard RN Report received from Jenniffer
--- NOTE | 2022-02-21 18:54 | NUR ---
Paged Dr. Madsen. Can patient eat a regular meal after Lidocaine wears off? Radha [id number]
--- NOTE | 2022-02-21 19:00 | NUR ---
Problems reprioritized. Patient report given, questions answered & plan of care reviewed with Tiffani Livingston, patient stable at transfer of care.
--- NOTE | 2022-02-21 19:13 | NUR ---
Patient's Flecanide Acetate held until Potassium is WNL per Dr. Rubio.
[2022-02-21] MEDS: K and/or MAG REPLACEMENT MC SCH (20:00)
[2022-02-22] MEDS: potassium CL 10mEq/100ml bag 100 ML IV PRN (00:33)
[2022-02-22] MEDS: pantoprazole 40MG/NS 100ML BAG 100 ML IV SCH ×3 (01:00→11:00)
[2022-02-22 04:14] VITALS: BP 102/50
[2022-02-22] MEDS: potassium Cl 20mEq in NS 1,000 ML IV SCH (04:55)
--- NOTE | 2022-02-22 06:08 | NUR ---
Patient in room PCU 3019. I have received report from Tiffani Livingston and had the opportunity to ask questions and assume patient care.
--- NOTE | 2022-02-22 06:11 | NUR ---
Problems reprioritized. Patient report given, questions answered & plan of care reviewed with Jenniffer.
[2022-02-22 06:55] LABS: BASOPHILS # (AUTO) 0.1 X10'3 (0-0.2); BASOPHILS % (AUTO) 1.1 % (0-1); EOSINOPHILS # (AUTO) 0.2 X10'3 (0-0.9); EOSINOPHILS % (AUTO) 2.9 % (0-6); HEMATOCRIT 40.4 % (42.0-52.0); HEMOGLOBIN 13.3 g/dl (14.0-17.9); LYMPHOCYTES # (AUTO) 1.5 X10'3 (1.1-4.8); LYMPHOCYTES % (AUTO) 25.3 % (21-51); MEAN CORPUSCULAR HEMOGLOBIN 31.5 PG (27.0-31.0); MEAN CORPUSCULAR HGB CONC 32.9 g/dL (33.0-36.5); MEAN CORPUSCULAR VOLUME 95.6 FL (78-98); MEAN PLATELET VOLUME 8.3 FL (7.4-10.4); MONOCYTES # (AUTO) 0.4 X10'3 (0-0.9); MONOCYTES % (AUTO) 6.8 % (2-12); NEUTROPHILS # (AUTO) 3.8 X10'3 (1.8-7.7); NEUTROPHILS % (AUTO) 63.9 % (42-75); PLATELET COUNT 134 X10'3 (140-440); RED BLOOD COUNT 4.22 X10'6 (4.70-6.10); RED CELL DISTRIBUTION WIDTH 15.5 % (11.5-14.5); WHITE BLOOD COUNT 5.9 X10'3 (4.5-11.0)
[2022-02-22] MEDS: K and/or MAG REPLACEMENT MC SCH (08:00)
[2022-02-22] MEDS: FENOFIBRATE 54 MG PO SCH (08:00)
[2022-02-22] MEDS: OMEGA-3/DHA/EPA/FISH OIL 1 EACH CAPSULE.DR PO SCH (08:00)
[2022-02-22 08:46] LABS: ALANINE AMINOTRANSFERASE 60 U/L (12-78); ALBUMIN 3.3 G/DL (3.4-5.0); ALBUMIN/GLOBULIN RATIO 0.9 (1.1-1.5); ALKALINE PHOSPHATASE 48 IU/L (46-116); ANION GAP 12 (8-16); ASPARTATE AMINO TRANSFERASE 59 U/L (10-37); BILIRUBIN,TOTAL 1.2 MG/DL (0.1-1.0); BLOOD UREA NITROGEN 11 MG/DL (7-18); CALCIUM 8.7 MG/DL (8.5-10.1); CHLORIDE 108 MMOL/L (99-107); CREATININE 0.92 MG/DL (0.60-1.10); GLUCOSE 116 MG/DL (70-104); POTASSIUM 4.4 MMOL/L (3.5-5.1); SODIUM 139 MMOL/L (135-145); TOTAL CARBON DIOXIDE 19.2 MMOL/L (24-32); TOTAL PROTEIN 6.8 G/DL (6.4-8.2); eGFR 81 ML/MIN
[2022-02-22] MEDS ORDERED: NICOTINE POLACRILEX 2 MG LOZENGE BC PRN (09:30)
[2022-02-22] MEDS ORDERED: FOLI0.4T6 PO (10:46)
[2022-02-22] MEDS ORDERED: PANT-47 PO (10:46)
[2022-02-22] MEDS ORDERED: THIA100T70 PO (10:46)
[2022-02-22] MEDS: flecainide 50mg tablet PO SCH (10:59)
[2022-02-22 11:04] VITALS: BP_SYST 122
[2022-02-22] MEDS: pantoprazole 40mg Tablet.DR PO SCH (11:04)
[2022-02-22] MEDS: metoprolol tartrate 25mg tablet PO SCH (11:04)
[2022-02-22] MEDS: calcium carbonate/vitamin D3 tablet PO SCH (11:04)
[2022-02-22] MEDS: tamsulosin 0.4mg capsule PO SCH (11:05)
[2022-02-22] MEDS: thiamine 100mg/ml 2ml inj. IV SCH (11:05)
[2022-02-22] MEDS: docusate sod 100mg capsule PO SCH (11:05)
[2022-02-22] MEDS: sertraline 50mg tablet PO SCH (11:05)
[2022-02-22] MEDS: folic acid 1mg/0.2ml inj IV SCH (11:12)
[2022-02-22] MEDS: POTASSIUM BICARB 20meq eff tab 20 MEQ TABLET.EFF PO SCH (11:15)
--- NOTE | 2022-02-22 15:40 | NUR ---
Patient stable for discharge per Dr. Madsen. All discharge instructions reviewed with the patient and all questions answered. PIC discontinued, cannula intact. Tele discontinued. All belonging collected and sent with the patient. Patient wheeled to lobby via nursing staff. And picked up by family.
[2022-02-22] MEDS ORDERED: LORazepam 2 mg/ml vial IV PRN (16:10)
[2022-02-22] MEDS ORDERED: LORazepam 1 MG tablet PO PRN (16:10)
[2022-02-24] MEDS ORDERED: LORazepam 1 MG tablet PO PRN (16:10)
[2022-02-24] MEDS ORDERED: LORazepam 2 mg/ml vial IV PRN (16:10)
[2022-02-25] MEDS ORDERED: folic acid 1mg tablet PO SCH (08:00)
[2022-02-25] MEDS ORDERED: thiamine 100mg tablet PO SCH (08:00)
== END 2022-02-22 14:23 | disposition home or self-care (01) | DRG 377 ==
LOC: ER 09:01 → ED HOLD 12:58 → PCU 3S 19:58
PROVIDERS: ADMIT Family Medicine; ATTEND Family Medicine
PROC: 0DB68ZX Excision of Stomach, Via Natural or Artificial Opening Endoscopic, Diagnostic (ICD-10-PCS; principal; 2022-02-21)
DX: K29.21 Alcoholic gastritis with bleeding (principal); I21.A1 Myocardial infarction type 2; K85.20 Alcohol induced acute pancreatitis without necrosis or infection; Z20.822 Contact with and (suspected) exposure to COVID-19; E87.6 Hypokalemia; E78.00 Pure hypercholesterolemia, unspecified; E78.5 Hyperlipidemia, unspecified; F10.20 Alcohol dependence, uncomplicated; I10 Essential (primary) hypertension; R74.01 Elevation of levels of liver transaminase levels; I48.91 Unspecified atrial fibrillation; K44.9 Diaphragmatic hernia without obstruction or gangrene; K92.0 Hematemesis; N40.0 Benign prostatic hyperplasia without lower urinary tract symptoms; G89.29 Other chronic pain; K21.9 Gastro-esophageal reflux disease without esophagitis; M54.9 Dorsalgia, unspecified; Z79.01 Long term (current) use of anticoagulants
CPT/HCPCS: 36415; 43239; 71045; 74176; 80053; 80320; 81001; 82150; 83690; 83735; 84132; 84484; 85025; 85610; 86885; 86900; 86901; 87081; 87635; 88305; 93005; 96374; 96375; 99152; 99285; A4620; C9113; G0378; J2060; J2250; J2270; J2405; J3010; J3411; J3480; J3490; J7030

== ENCOUNTER 2023-01-29 06:45 | Emergency (ER) | payer MEDICARE, OTHER ==
[~2023-01-29] VITALS: Ht 175.3 cm; Wt 90.9 kg
[~2023-01-29 06:45] MED LIST changes: +FENO54TA PO; -OMEP20TA43 PO; +PANT-47 PO; -SERT50TA PO; +THIA100T70 PO
[2023-01-29 07:09] LABS: BASOPHILS # (AUTO) 0.1 X10'3 (0-0.2); BASOPHILS % (AUTO) 0.7 % (0-1); EOSINOPHILS # (AUTO) 0.1 X10'3 (0-0.9); HEMATOCRIT 41.2 % (42.0-52.0); HEMOGLOBIN 14.2 g/dl (14.0-17.9); LYMPHOCYTES # (AUTO) 1.6 X10'3 (1.1-4.8); LYMPHOCYTES % (AUTO) 21.6 % (21-51); MEAN CORPUSCULAR HEMOGLOBIN 31.6 PG (27.0-31.0); MEAN CORPUSCULAR HGB CONC 34.4 g/dL (33.0-36.5); MEAN CORPUSCULAR VOLUME 91.8 FL (78-98); MEAN PLATELET VOLUME 6.7 FL (7.4-10.4); MONOCYTES # (AUTO) 0.6 X10'3 (0-0.9); MONOCYTES % (AUTO) 8.1 % (2-12); NEUTROPHILS # (AUTO) 5.1 X10'3 (1.8-7.7); NEUTROPHILS % (AUTO) 68.6 % (42-75); PLATELET COUNT 165 X10'3 (140-440); RED BLOOD COUNT 4.49 X10'6 (4.70-6.10); RED CELL DISTRIBUTION WIDTH 14.6 % (11.5-14.5); WHITE BLOOD COUNT 7.4 X10'3 (4.5-11.0)
[2023-01-29 07:27] LABS: ALANINE AMINOTRANSFERASE 14 U/L (12-78); ALBUMIN 3.7 G/DL (3.4-5.0); ALKALINE PHOSPHATASE 69 IU/L (46-116); ANION GAP 16 (8-16); ASPARTATE AMINO TRANSFERASE 50 U/L (10-37); BILIRUBIN,TOTAL 0.9 MG/DL (0.1-1.0); BLOOD UREA NITROGEN 10 MG/DL (7-18); BUN/CREATININE RATIO 9.1 (10.0-20.0); CALCIUM 9.4 MG/DL (8.5-10.1); CHLORIDE 100 MMOL/L (99-107); GLUCOSE 123 MG/DL (70-104); POTASSIUM 3.1 MMOL/L (3.5-5.1); SODIUM 140 MMOL/L (135-145); TOTAL CARBON DIOXIDE 23.9 MMOL/L (24-32); TOTAL PROTEIN 7.4 G/DL (6.4-8.2); eGFR 66 ML/MIN
[2023-01-29 07:33] LABS: MAGNESIUM 1.8 MG/DL (1.5-2.4)
[2023-01-29] MEDS ORDERED: normal saline 1000ML IV soln IVB ONE (09:35)
[2023-01-29] MEDS ORDERED: LORazepam 2 mg/ml vial IV ONE (09:35)
[2023-01-29] MEDS ORDERED: ondansetron/PF 4mg/2ml inj IV ONE ×2 (09:35→13:20)
[2023-01-29] MEDS ORDERED: potassium Cl 20 mEq SR tablet PO STA (10:05)
[2023-01-29] MEDS ORDERED: CHLO25CA10 PO (12:54)
--- NOTE | 2023-01-29 12:54 | NUR ---
Received order for consult. Met with patient in regards to alcohol use and to see if patient was interested in resources for treatment options. Patient is interested in resources. Patient is looking into inpatient rehabs. Patient has taken Librium in the past and it worked well. I talked to Dr Cutler and he is going to presribe that. I gave patient a card for let's recover and my card to call me with any questions.
[2023-01-29] MEDS ORDERED: ONDA4TAB12 PO (13:22)
[2023-01-29 13:32] VITALS: BP 126/61
== END 2023-01-29 13:50 | disposition home or self-care (01) ==
LOC: ER 06:45
DX: R10.816 Epigastric abdominal tenderness (principal); E87.6 Hypokalemia; E86.0 Dehydration; E78.00 Pure hypercholesterolemia, unspecified; G89.29 Other chronic pain; M54.9 Dorsalgia, unspecified; F17.200 Nicotine dependence, unspecified, uncomplicated; Z79.899 Other long term (current) drug therapy; Z79.1 Long term (current) use of non-steroidal anti-inflammatories (NSAID); Z79.2 Long term (current) use of antibiotics
CPT/HCPCS: 36415; 71045; 80053; 83735; 83880; 84484; 85025; 93005; 96361; 96374; 96375; 96376; 99285; J2060; J2405; J7030

== ENCOUNTER 2024-07-01 06:38 | Day surgery (SDC) | payer MEDICARE, OTHER ==
[2024-06-30 15:32] LABS: BASOPHILS # (AUTO) 0.1 X10'3 (0-0.2); EOSINOPHILS # (AUTO) 0.2 X10'3 (0-0.9); EOSINOPHILS % (AUTO) 3.1 % (0-6); HEMATOCRIT 42.1 % (42.0-52.0); HEMOGLOBIN 13.9 g/dl (14.0-17.9); LYMPHOCYTES # (AUTO) 2.2 X10'3 (1.1-4.8); LYMPHOCYTES % (AUTO) 30.1 % (21-51); MEAN CORPUSCULAR HEMOGLOBIN 30.7 PG (27.0-31.0); MEAN CORPUSCULAR HGB CONC 33.1 g/dL (33.0-36.5); MEAN CORPUSCULAR VOLUME 92.8 FL (78-98); MEAN PLATELET VOLUME 7.2 FL (7.4-10.4); MONOCYTES # (AUTO) 0.5 X10'3 (0-0.9); MONOCYTES % (AUTO) 6.8 % (2-12); NEUTROPHILS # (AUTO) 4.4 X10'3 (1.8-7.7); PLATELET COUNT 214 X10'3 (140-440); RED BLOOD COUNT 4.54 X10'6 (4.70-6.10); RED CELL DISTRIBUTION WIDTH 13.7 % (11.5-14.5); WHITE BLOOD COUNT 7.4 X10'3 (4.5-11.0)
[2024-06-30 15:41] LABS: ALBUMIN 3.7 G/DL (3.4-5.0); ANION GAP 5 (8-16); BLOOD UREA NITROGEN 13 MG/DL (7-18); BUN/CREATININE RATIO 14.1 (10.0-20.0); CALCIUM 9.1 MG/DL (8.5-10.1); CHLORIDE 104 MMOL/L (99-107); CREATININE 0.92 MG/DL (0.60-1.10); GLUCOSE 114 MG/DL (70-104); POTASSIUM 4.3 MMOL/L (3.5-5.1); SODIUM 139 MMOL/L (135-145); TOTAL CARBON DIOXIDE 29.6 MMOL/L (24-32); eGFR 80 ML/MIN
[2024-06-30 15:45] LABS: APTT 28 SECONDS (22-32); PROTHROMBIN TIME 10.9 SECONDS (9.0-12.0)
[2024-07-01] VITALS (11 sets, daily range): BP systolic 109–137; BP diastolic 51–81; PULSE 48–68; RESP 14–16; TEMP 97.9; O2SAT 93–97
[~2024-07-01] VITALS: Ht 172.7 cm; Wt 89.9 kg
[~2024-07-01 06:38] MED LIST changes: +CHLO25CA10 PO; +ONDA-243 PO
[2024-07-01] MEDS ORDERED: OMEP40CA21 PO (07:21)
[2024-07-01] MEDS ORDERED: verapamil 2.5 mg/ml inj IV ONE (07:28)
[2024-07-01] MEDS ORDERED: iohexol 350 MG/ML 50ML vial IV ONE (07:28)
[2024-07-01] MEDS ORDERED: fentaNYL/PF 50MCG/1 ML 2ML syringe ONE (07:28)
[2024-07-01] MEDS ORDERED: iohexol 350MG/ML 100ml bottle IV ONE (07:28)
[2024-07-01] MEDS ORDERED: LIDOcaine 1% (10mg/ml) 2ml vial ONE (07:28)
[2024-07-01] MEDS ORDERED: midazolam 1 mg/ML 2ml injection ONE (07:28)
[2024-07-01] MEDS ORDERED: heparin 1,000unit/ml 10ml vial 10 ML ONE (07:28)
[2024-07-01] MEDS ORDERED: nitroGLYCERIN 500mcg/5mL D5W 5 ML IV ONE (07:29)
[2024-07-01] MEDS: LORazepam 0.5 MG tablet PO PRN (07:37)
[2024-07-01] MEDS: normal saline 1,000 ML IV SCH (07:37)
[2024-07-01] MEDS: diphenhydrAMINE 25mg capsule PO PRN (07:37)
[2024-07-01] MEDS ORDERED: HYDROcodone/acetaminophen 10/325mg tab PO PRN (09:40)
[2024-07-01] MEDS ORDERED: HYDROcodone/acetaminophen 5mg/325mg tablet PO PRN (09:40)
[2024-07-01 10:41] LABS: ISTAT HGB ART 12.2 g/dl (14.0-17.9); ISTAT Hct ART 36 %PCV (42-52); ISTAT O2 SATURATION ARTERIAL 90 % (95-98); ISTAT SOURCE ART
[2024-07-01 16:15] LABS: ISTAT HGB MIX 12.2 g/dl (14.0-17.9); ISTAT Hct MIX 36 %PCV (42-52); ISTAT O2 SATURATION MIX VENOUS 54 % (60-80); ISTAT SOURCE VEN
== END 2024-07-01 13:00 | disposition home or self-care (01) ==
LOC: SSTAY O 06:38
PROVIDERS: ATTEND Internal Medicine Cardiovascular Disease
DX: I35.0 Nonrheumatic aortic (valve) stenosis (principal); I25.10 Atherosclerotic heart disease of native coronary artery without angina pectoris; R94.31 Abnormal electrocardiogram [ECG] [EKG]; I10 Essential (primary) hypertension; E78.5 Hyperlipidemia, unspecified; I48.0 Paroxysmal atrial fibrillation; K21.9 Gastro-esophageal reflux disease without esophagitis; G47.33 Obstructive sleep apnea (adult) (pediatric); Z85.46 Personal history of malignant neoplasm of prostate; Z79.01 Long term (current) use of anticoagulants; Z79.891 Long term (current) use of opiate analgesic; Z79.899 Other long term (current) drug therapy; Z98.890 Other specified postprocedural states; Z82.49 Family history of ischemic heart disease and other diseases of the circulatory system
CPT/HCPCS: 36415; 80048; 82803; 85014; 85025; 85610; 85730; 93005; 93460; 93567; 99152; 99153; A6258; A6402; C1725; C1751; C1769; J1644; J2001; J2250; J3010; J3490; J7030; Q0163; Q9967; Z7610; 76937

== ENCOUNTER 2024-08-20 09:35 | Outpatient (CLI) | payer MEDICARE, OTHER ==
[~2024-08-20 09:35] MED LIST changes: -CALC-854 PO; -CHLO25CA10 PO; +IODIXANOL 320 MG/ML INFUS..BTL 100ML IV ONE; -OMEG1CAP46 PO; +OMEP40CA21 PO; -ONDA-243 PO; -PANT-47 PO; -THIA100T70 PO
[2024-08-20 10:01] LABS: BASOPHILS # (AUTO) 0.1 X10'3 (0-0.2); BASOPHILS % (AUTO) 0.7 % (0-1); EOSINOPHILS # (AUTO) 0.1 X10'3 (0-0.9); EOSINOPHILS % (AUTO) 1.8 % (0-6); HEMATOCRIT 41.7 % (42.0-52.0); HEMOGLOBIN 14.1 g/dl (14.0-17.9); LYMPHOCYTES % (AUTO) 23.6 % (21-51); MEAN CORPUSCULAR HEMOGLOBIN 31.3 PG (27.0-31.0); MEAN CORPUSCULAR HGB CONC 33.7 g/dL (33.0-36.5); MEAN CORPUSCULAR VOLUME 92.7 FL (78-98); MEAN PLATELET VOLUME 6.9 FL (7.4-10.4); MONOCYTES # (AUTO) 0.8 X10'3 (0-0.9); NEUTROPHILS # (AUTO) 5.5 X10'3 (1.8-7.7); NEUTROPHILS % (AUTO) 64.9 % (42-75); PLATELET COUNT 255 X10'3 (140-440); RED CELL DISTRIBUTION WIDTH 13.9 % (11.5-14.5); WHITE BLOOD COUNT 8.5 X10'3 (4.5-11.0)
[2024-08-20 10:26] LABS: APTT 34 SECONDS (22-32); INR 1.1 INR
[2024-08-20 10:28] LABS: PROTHROMBIN TIME 11.8 SECONDS (9.0-12.0)
[2024-08-20 10:34] LABS: ALANINE AMINOTRANSFERASE 30 U/L (12-78); ALBUMIN 3.7 G/DL (3.4-5.0); ALBUMIN/GLOBULIN RATIO 0.9 (1.1-1.5); ALKALINE PHOSPHATASE 69 IU/L (46-116); ANION GAP 5 (8-16); ASPARTATE AMINO TRANSFERASE 5 U/L (10-37); BILIRUBIN,TOTAL 0.8 MG/DL (0.1-1.0); BLOOD UREA NITROGEN 15 MG/DL (7-18); BUN/CREATININE RATIO 16.3 (10.0-20.0); CALCIUM 9.3 MG/DL (8.5-10.1); CHLORIDE 106 MMOL/L (99-107); CREATININE 0.92 MG/DL (0.60-1.10); GLUCOSE 90 MG/DL (70-104); POTASSIUM 4.4 MMOL/L (3.5-5.1); SODIUM 141 MMOL/L (135-145); TOTAL CARBON DIOXIDE 30.4 MMOL/L (24-32); TOTAL PROTEIN 7.6 G/DL (6.4-8.2); eGFR 80 ML/MIN
[2024-08-20 10:45] LABS: PRO BRAIN NATRIURETIC PEPTIDE 152 PG/ML (0-450)
== END 2024-08-20 23:59 | disposition home or self-care (01) ==
LOC: RAD 09:35
PROVIDERS: ATTEND Internal Medicine Cardiovascular Disease
DX: Z01.818 Encounter for other preprocedural examination (principal); I70.0 Atherosclerosis of aorta; I65.23 Occlusion and stenosis of bilateral carotid arteries; I35.0 Nonrheumatic aortic (valve) stenosis; R06.02 Shortness of breath; K40.90 Unilateral inguinal hernia, without obstruction or gangrene, not specified as recurrent; M47.814 Spondylosis without myelopathy or radiculopathy, thoracic region
CPT/HCPCS: 36415; 71046; 71275; 74174; 75572; 80053; 83880; 85025; 85610; 85730; 93880; Q9967

== ENCOUNTER 2024-08-21 13:44 | Outpatient (CLI) | payer MEDICARE, OTHER ==
[~2024-08-21] VITALS: Ht 172.7 cm; Wt 93.9 kg
[2024-08-21 14:14] VITALS: BP 143/61; PULSE 63; RESP 20; TEMP 96.2; O2SAT 98
== END 2024-08-21 23:59 | disposition home or self-care (01) ==
LOC: TAVR 13:44
PROVIDERS: ATTEND Internal Medicine Cardiovascular Disease
DX: I35.0 Nonrheumatic aortic (valve) stenosis (principal); R06.02 Shortness of breath; I65.29 Occlusion and stenosis of unspecified carotid artery; E78.5 Hyperlipidemia, unspecified; G47.33 Obstructive sleep apnea (adult) (pediatric); I10 Essential (primary) hypertension; I48.91 Unspecified atrial fibrillation; Z79.899 Other long term (current) drug therapy; Z85.46 Personal history of malignant neoplasm of prostate; Z92.3 Personal history of irradiation
CPT/HCPCS: Q9967

== ENCOUNTER 2024-10-30 06:07 | Inpatient (IN) | payer MEDICARE, OTHER ==
[2024-10-23 10:42] LABS: BASOPHILS # (AUTO) 0.1 X10'3 (0-0.2); BASOPHILS % (AUTO) 1.2 % (0-1); EOSINOPHILS # (AUTO) 0.2 X10'3 (0-0.9); EOSINOPHILS % (AUTO) 2.9 % (0-6); LYMPHOCYTES # (AUTO) 1.6 X10'3 (1.1-4.8); LYMPHOCYTES % (AUTO) 24.5 % (21-51); MEAN CORPUSCULAR HEMOGLOBIN 31.3 PG (27.0-31.0); MEAN CORPUSCULAR HGB CONC 33.9 g/dL (33.0-36.5); MEAN CORPUSCULAR VOLUME 92.5 FL (78-98); MEAN PLATELET VOLUME 7.3 FL (7.4-10.4); MONOCYTES # (AUTO) 0.6 X10'3 (0-0.9); MONOCYTES % (AUTO) 9.4 % (2-12); PRE OP HEMATOCRIT 40.8 % (42.0-52.0); PRE OP HEMOGLOBIN 13.8 g/dL (14.0-17.9); PRE OP PLATELET COUNT 230 X10'3 (140-440); PRE OP WHITE BLOOD COUNT 6.5 10'3 (4.8-10.8); RED BLOOD COUNT 4.42 X10'6 (4.70-6.10); RED CELL DISTRIBUTION WIDTH 14.5 % (11.5-14.5)
[2024-10-23 11:25] LABS: ALBUMIN 3.8 G/DL (3.4-5.0); ALKALINE PHOSPHATASE 71 IU/L (46-116); BLOOD UREA NITROGEN 16 MG/DL (7-18); BUN/CREATININE RATIO 17.2 (10.0-20.0); CALCIUM 9.3 MG/DL (8.5-10.1); CHLORIDE 106 MMOL/L (99-107); CREATININE 0.93 MG/DL (0.60-1.10); PRE OP ALT 28 U/L (30-65); PRE OP ANION GAP 9 (8-16); PRE OP AST 15 U/L (10-37); PRE OP BILIRUB, TOTAL 0.7 MG/DL (0.0-1.0); PRE OP GLUCOSE 88 MG/DL (70-104); PRE OP SODIUM 143 MMOL/L (135-145); PRO BRAIN NATRIURETIC PEPTIDE 165 PG/ML (0-450); TOTAL CARBON DIOXIDE 28.1 MMOL/L (24-32); TOTAL PROTEIN 7.6 G/DL (6.4-8.2); eGFR 79 ML/MIN
[2024-10-23 11:42] LABS: HEMOGLOBIN A1C 5.6 % (4.5-6.2)
[2024-10-23 12:08] LABS: PRE OP INR 1.4 INR; PRE OP PROTIME 14.6 SECONDS (9.0-12.0)
[2024-10-24 15:44] LABS: BILIRUBIN,URINE NEGATIVE (Neg); CLARITY,URINE CLEAR (Clear); COLOR,URINE YELLOW (Yellow); GLUCOSE, URINE NEGATIVE (Neg); KETONES,URINE NEGATIVE (Neg); LEUKOCYTE ESTERASE ,URINE NEGATIVE (Neg); NITRITES, URINE NEGATIVE (Neg); OCCULT BLOOD,URINE NEGATIVE (Neg); PROTEIN,URINE NEGATIVE (Neg); UA COLLECTION TYPE CLN CATCH MIDSTREAM; UROBILINOGEN,URINE 0.2 E.U/dL (0.2-1.0)
[~2024-10-30] VITALS: Ht 172.7 cm; Wt 92.7 kg
[2024-10-30] VITALS (23 sets, daily range): BP systolic 98–168; BP diastolic 48–68; PULSE 53–82; RESP 11–24; TEMP 96.8–97.2; O2SAT 89–98
[2024-10-30] MEDS: phenylephrine inj 50 MG in normal saline 250ml IV solN IV SCH (05:30)
[2024-10-30] MEDS: ceFAZolin 2gm in dextrose, iso 50 ML IV ONE (05:30)
[2024-10-30] MEDS: nitroPRUSSIDE (NIPRIDE) (200MCG/ML) 100ML Drip IV SCH (05:30)
[~2024-10-30 06:07] MED LIST changes: -APIX5TAB5 PO; +CALCIUM VIT D PO; -FENO54TA PO; -IODIXANOL 320 MG/ML INFUS..BTL 100ML IV ONE; +MEGE20TA3 PO; +OMEG1CAP46 PO; +RIVA20TA PO; +SERT-433 PO; +ondansetron/PF 4mg/2ml inj IV PRN
[2024-10-30] MEDS ORDERED: protamine sulfate 10mg/ml inj. ONE (06:25)
[2024-10-30] MEDS ORDERED: iohexol 350MG/ML 100ml bottle IV ONE (07:05)
[2024-10-30] MEDS ORDERED: LIDOcaine 1% 30ml preserv. free vial ONE (07:05)
[2024-10-30] MEDS ORDERED: heparin 1,000 UNITS/NS 500ml 1,500 ML ONE (07:05)
[2024-10-30] MEDS: famotidine 20mg tablet PO ONE (07:11)
[2024-10-30] MEDS: ringers solution, lacted 1,000 ML IV SCH ×2 (07:11→11:42)
[2024-10-30] MEDS: aspirin 325mg tablet PO ONE (07:11)
[2024-10-30] MEDS: VANCOMYCIN/H2O 1.5g/300mL PB 300 ML IV ONE (07:12)
[2024-10-30] MEDS ORDERED: sevoflurane 250ml liquid IH ONE (07:28)
[2024-10-30] MEDS ORDERED: fentaNYL/PF 50MCG/1 ML 2ML syringe ONE (07:33)
[2024-10-30] MEDS ORDERED: midazolam 1 mg/ML 2ml injection ONE (07:33)
[2024-10-30] MEDS ORDERED: pantoprazole 40mg Tablet.DR PO SCH (08:00)
[2024-10-30] MEDS ORDERED: morphine 2 MG/ML inj. syringe IV PRN (08:05)
[2024-10-30] MEDS ORDERED: ondansetron/PF 4mg/2ml inj IV PRN ×2 (08:05→08:50)
[2024-10-30] MEDS ORDERED: meperidine/PF 25mg/ml syringe IV PRN ×3 (08:05)
[2024-10-30] MEDS ORDERED: proCHLORperazine 10 MG/2 ml inj IV PRN ×2 (08:05→08:50)
[2024-10-30] MEDS ORDERED: morphine 4 MG/ML inj SYRINge IV PRN (08:05)
[2024-10-30] MEDS ORDERED: propofol inj 20 ML IV ONE (08:17)
[2024-10-30] MEDS ORDERED: heparin 1,000unit/ml 10ml vial 10 ML ONE ×2 (08:17)
[2024-10-30] MEDS ORDERED: labetalol 20mg/4ml (5mg/ml) syringe IV ONE (08:41)
[2024-10-30] MEDS ORDERED: potassium Cl 40MEQ/1/2NS 520ml 520 ML IV PRN (08:50)
[2024-10-30] MEDS ORDERED: magnesium sulf-water 2g/50mL 50 ML IV PRN (08:50)
[2024-10-30] MEDS ORDERED: pantoprazole 40mg Tablet.DR PO PRN (08:50)
[2024-10-30] MEDS ORDERED: docusate sod 100mg capsule PO PRN (08:50)
[2024-10-30] MEDS ORDERED: HYDROcodone/acetaminophen 5mg/325mg tablet PO PRN (08:50)
[2024-10-30] MEDS ORDERED: acetaminophen 325mg tablet PO PRN (08:50)
[2024-10-30] MEDS ORDERED: normal saline 1000ml 1,000 ML IV SCH (08:50)
[2024-10-30] MEDS ORDERED: potassium Cl 40MEQ/270ML bag 250 ML IV PRN (08:50)
[2024-10-30] MEDS ORDERED: ALPRAZolam 0.25mg tablet PO PRN (08:50)
[2024-10-30] MEDS ORDERED: potassium Cl 20 mEq SR tablet PO PRN (08:50)
[2024-10-30] MEDS ORDERED: potassium CL 10mEq/100ml bag 100 ML IV PRN (08:50)
[2024-10-30] MEDS ORDERED: magnesium sulf-water 4G/100mL 100 ML IV PRN (08:50)
[2024-10-30] MEDS ORDERED: hydrALAZINE 20mg/ml inj. IV PRN (08:50)
[2024-10-30] MEDS ORDERED: labetalol 20mg/4ml (5mg/ml) syringe IV PRN (08:50)
[2024-10-30] MEDS ORDERED: diphenhydrAMINE 25mg capsule PO PRN (08:50)
[2024-10-30] MEDS ORDERED: potassium Cl 20mEq/100mL bag 100 ML IV PRN (08:50)
[2024-10-30] MEDS: metoprolol tartrate 25mg tablet PO SCH (11:41)
[2024-10-30] MEDS: tamsulosin 0.4mg capsule PO SCH (11:41)
[2024-10-30] MEDS: megestrol acetate 20mg tablet PO SCH (11:41)
[2024-10-30] MEDS: flecainide 50mg tablet PO SCH (11:41)
[2024-10-30] MEDS: OMEGA-3/DHA/EPA/FISH OIL 1 EACH CAPSULE.DR PO SCH (11:42)
[2024-10-30] MEDS: DOCUMENT DATE & TIME OF BETA-BLOCKER PO ONE (11:42)
[2024-10-30] MEDS: cholecalciferol (vitamin D3) 1,000 unit (25mcg) tablet PO SCH (11:42)
[2024-10-30] MEDS: sertraline 50mg tablet PO SCH (11:42)
[2024-10-30] MEDS: ceFAZolin 1GM/D5W- ADD-VANTAGE 50 ML IV SCH (15:35)
[2024-10-30] MEDS: sod chloride 0.9% 10ml flush syringe IV SCH (16:00)
[2024-10-30] MEDS: VANCOMYCIN 1GM 200ML H20 (PEG) 200 ML IV SCH (20:19)
[2024-10-31] VITALS (7 sets, daily range): BP systolic 107–127; BP diastolic 41–83; PULSE 61–72; RESP 12–17; TEMP 97.2–98; O2SAT 93–97
[2024-10-31 06:07] LABS: BASOPHILS % (AUTO) 0.5 % (0-1); EOSINOPHILS # (AUTO) 0.2 X10'3 (0-0.9); HEMATOCRIT 35.8 % (42.0-52.0); HEMOGLOBIN 12.3 g/dl (14.0-17.9); LYMPHOCYTES # (AUTO) 2.1 X10'3 (1.1-4.8); LYMPHOCYTES % (AUTO) 21.5 % (21-51); MEAN CORPUSCULAR HEMOGLOBIN 31.6 PG (27.0-31.0); MEAN CORPUSCULAR HGB CONC 34.4 g/dL (33.0-36.5); MEAN CORPUSCULAR VOLUME 91.9 FL (78-98); MEAN PLATELET VOLUME 7.5 FL (7.4-10.4); MONOCYTES # (AUTO) 1.1 X10'3 (0-0.9); NEUTROPHILS # (AUTO) 6.1 X10'3 (1.8-7.7); PLATELET COUNT 147 X10'3 (140-440); RED BLOOD COUNT 3.89 X10'6 (4.70-6.10); RED CELL DISTRIBUTION WIDTH 14.7 % (11.5-14.5); WHITE BLOOD COUNT 9.6 X10'3 (4.5-11.0)
[2024-10-31 06:14] LABS: ALANINE AMINOTRANSFERASE 18 U/L (12-78); ALBUMIN 3.2 G/DL (3.4-5.0); ALBUMIN/GLOBULIN RATIO 0.9 (1.1-1.5); ALKALINE PHOSPHATASE 58 IU/L (46-116); ANION GAP 8 (8-16); ASPARTATE AMINO TRANSFERASE 17 U/L (10-37); BILIRUBIN,TOTAL 0.8 MG/DL (0.1-1.0); BLOOD UREA NITROGEN 11 MG/DL (7-18); BUN/CREATININE RATIO 11.2 (10.0-20.0); CALCIUM 8.5 MG/DL (8.5-10.1); CHLORIDE 104 MMOL/L (99-107); CREATININE 0.98 MG/DL (0.60-1.10); GLUCOSE 115 MG/DL (70-104); MAGNESIUM 2.6 MG/DL (1.5-2.4); POTASSIUM 3.9 MMOL/L (3.5-5.1); PRO BRAIN NATRIURETIC PEPTIDE 341 PG/ML (0-450); SODIUM 139 MMOL/L (135-145); TOTAL CARBON DIOXIDE 27.4 MMOL/L (24-32); TOTAL PROTEIN 6.8 G/DL (6.4-8.2); eCRCL 63 ML/MIN; eGFR 75 ML/MIN
[2024-10-31] MEDS: HYDROcodone/acetaminophen 10/325mg tab PO PRN (12:23)
== END 2024-10-31 17:50 | disposition home or self-care (01) | DRG 266 ==
LOC: PAS IN 06:07 → PCU 3S 17:09 → S STAY 10-31 09:58
PROVIDERS: ADMIT Internal Medicine Cardiovascular Disease; ATTEND Internal Medicine Cardiovascular Disease
PROC: B41D1ZZ Fluoroscopy of Aorta and Bilateral Lower Extremity Arteries using Low Osmolar Contrast (ICD-10-PCS; 2024-10-30)
PROC: 03HY32Z Insertion of Monitoring Device into Upper Artery, Percutaneous Approach (ICD-10-PCS; 2024-10-30)
PROC: 02RF38Z Replacement of Aortic Valve with Zooplastic Tissue, Percutaneous Approach (ICD-10-PCS; principal; 2024-10-30 07:28)
DX: I35.0 Nonrheumatic aortic (valve) stenosis (principal); Z00.6 Encounter for examination for normal comparison and control in clinical research program; I50.33 Acute on chronic diastolic (congestive) heart failure; I48.91 Unspecified atrial fibrillation; I11.0 Hypertensive heart disease with heart failure
CPT/HCPCS: 33361; 36415; 71045; 71046; 76937; 80053; 81003; 82948; 83036; 83735; 83880; 85025; 85347; 85610; 85730; 86885; 86900; 86901; 86920; 87081; 93005; 93308; A4615; A4618; A6258; A6449; C1756; C1760; C1769; C1894; G0378; J0690; J1644; J2003; J2250; J2371; J2704; J2720; J3010; J3370; J3372; J3490; J7040; J7050; J7120; Q9967

== ENCOUNTER 2024-12-05 09:31 | Outpatient (CLI) | payer MEDICARE, OTHER ==
[2024-12-04 13:26] LABS: BASOPHILS # (AUTO) 0.1 X10'3 (0-0.2); BASOPHILS % (AUTO) 1.1 % (0-1); EOSINOPHILS # (AUTO) 0.2 X10'3 (0-0.9); EOSINOPHILS % (AUTO) 3.2 % (0-6); HEMATOCRIT 41.2 % (42.0-52.0); HEMOGLOBIN 13.9 g/dl (14.0-17.9); LYMPHOCYTES # (AUTO) 2.1 X10'3 (1.1-4.8); LYMPHOCYTES % (AUTO) 30.2 % (21-51); MEAN CORPUSCULAR HGB CONC 33.7 g/dL (33.0-36.5); MEAN CORPUSCULAR VOLUME 92.1 FL (78-98); MEAN PLATELET VOLUME 6.9 FL (7.4-10.4); MONOCYTES # (AUTO) 0.6 X10'3 (0-0.9); MONOCYTES % (AUTO) 8.2 % (2-12); NEUTROPHILS % (AUTO) 57.3 % (42-75); PLATELET COUNT 174 X10'3 (140-440); RED BLOOD COUNT 4.48 X10'6 (4.70-6.10); RED CELL DISTRIBUTION WIDTH 14.3 % (11.5-14.5)
[2024-12-04 13:43] LABS: ALANINE AMINOTRANSFERASE 17 U/L (12-78); ALBUMIN 3.7 G/DL (3.4-5.0); ALKALINE PHOSPHATASE 70 IU/L (46-116); ANION GAP 7 (8-16); ASPARTATE AMINO TRANSFERASE 15 U/L (10-37); BILIRUBIN,TOTAL 0.6 MG/DL (0.1-1.0); BLOOD UREA NITROGEN 17 MG/DL (7-18); BUN/CREATININE RATIO 17.2 (10.0-20.0); CALCIUM 9.3 MG/DL (8.5-10.1); CHLORIDE 107 MMOL/L (99-107); CREATININE 0.99 MG/DL (0.60-1.10); GLUCOSE 112 MG/DL (70-104); POTASSIUM 4.4 MMOL/L (3.5-5.1); SODIUM 143 MMOL/L (135-145); TOTAL CARBON DIOXIDE 28.7 MMOL/L (24-32); TOTAL PROTEIN 7.5 G/DL (6.4-8.2); eGFR 74 ML/MIN
[~2024-12-05 09:31] MED LIST changes: -ondansetron/PF 4mg/2ml inj IV PRN
[2024-12-05] MEDS ORDERED: iohexol 300mg/ml 100ml inj. ONE (09:50)
[2024-12-06 13:32] LABS: % FREE PSA 24.5 % (.); PROSTATE SPECIFIC AG, SERUM 5.6 ng/mL (0.0-4.0); PSA, FREE 1.37 ng/mL
== END 2024-12-05 23:59 | disposition home or self-care (01) ==
LOC: RAD 09:31
PROVIDERS: ATTEND Internal Medicine Medical Oncology
DX: C61 Malignant neoplasm of prostate (principal); N28.1 Cyst of kidney, acquired; M41.86 Other forms of scoliosis, lumbar region; M51.369 Other intervertebral disc degeneration, lumbar region without mention of lumbar back pain or lower extremity pain
CPT/HCPCS: 36415; 71260; 74178; 80053; 84153; 84154; 85025; Q9967

== ENCOUNTER 2025-09-14 09:12 | Outpatient (CLI) | payer MEDICARE, OTHER ==
--- NOTE | 2025-09-14 11:30 | RADIOLOGY REPORT ---
PROCEDURE: CT CT CHEST LOW DOSE Reason for study/Clinical History: SOLITARY PULMONARY NODULE COMPARISON: CT CT CHEST ABDOMEN PELVIS on DOS: 12/05/24, DI CHEST,SINGLE VIEW on DOS: 10/31/24, DI CHEST,TWO VIEWS on DOS: 10/23/24, DI CHEST,TWO VIEWS on DOS: 08/20/24, CHEST,SINGLE VIEW on DOS: 01/29/23 TECHNIQUE: Multidetector CT of the chest was performed from the lung apices to the upper abdomen without the use of intravenous contract. Axial, coronal and sagittal multiplanar reformats were performed. Radiation Dose Information: CT Dose: CTDI volume is 2.8 mGy. Dose-length product is 106.9 mGy*cm The dose indicators for CT are the volume Computed Tomography (CT) Dose Index (CTDIvol) and the Dose Length Product (DLP), and are measured in units of mGy and mGy-cm, respectively. These indicators are not patient dose, but values generated from the CT scanner acquisition factors. The report includes radiation exposure data for exposures received during this examination. FINDINGS: Lower neck: Normal thyroid. Lungs: Mild emphysema/COPD. [id number] 6 % * According to the Fleischner Society Statement (J Carlos DA, et al., Radiology 2015), there is no significant emphysema if JORGE is less than 6%. No focal consolidation. No suspicious pulmonary nodules Heart/Vascular Structures: Coronary artery calcifications. Aortic valve replacement. Agatston Score 326/N4 Arterial Age 80 yrs (95 % CI 78-83 yrs) Lymph Nodes: No adenopathy Pleura: No pleural effusion or significant pneumothorax. Musculoskeletal: No acute osseous abnormality. Degenerative changes of the spine. Soft tissues: Normal. Upper abdomen: Limited portions of the upper abdomen are unremarkable. IMPRESSION: No suspicious pulmonary nodule. LUNG RADS Category 1: Continue annual screening with LDCT
== END 2025-09-14 23:59 | disposition home or self-care (01) ==
LOC: RAD 09:12
PROVIDERS: ATTEND Student in an Organized Health Care Education/Training Program
DX: Z12.2 Encounter for screening for malignant neoplasm of respiratory organs (principal); R91.1 Solitary pulmonary nodule; J43.9 Emphysema, unspecified; F17.210 Nicotine dependence, cigarettes, uncomplicated
CPT/HCPCS: 71271

== ENCOUNTER 2025-09-21 10:04 | Outpatient (CLI) | payer MEDICARE, OTHER ==
--- NOTE | 2025-09-21 11:53 | RADIOLOGY REPORT ---
MR MRI LUMBAR SPINE INDICATION: LOW BACK PAIN EXAM DATE: 09/21/2025 11:02 AM COMPARISON: MRI LUMBAR SPINE on DOS: 09/28/20 PROCEDURE: Using a 1.5 Lashell scanner, multisequence multiplanar imaging of the lumbar spine was obtained. FINDINGS: There are five lumbar vertebral segments. The lumbar spine shows mild leftward curvature in alignment with preservation of vertebral body heights. The marrow signal is heterogeneous. The intervertebral discs appear decreased in height and signal. The distal spinal cord is normal in signal and morphology and the conus medullaris terminates at L1. The paraspinal soft tissues are normal. On axial images: At L1-2, the posterior disc osteophyte complex, thecal sac is maintained, severe bilateral neural foramina narrowing, and facet joints appear degenerative. At L2-3, the posterior disc osteophyte complex, thecal sac is maintained, moderate bilateral neural foramina narrowing, and facet joints appear degenerative. At L3-4, the posterior disc osteophyte complex, thecal sac is maintained, moderate-severe bilateral neural foramina narrowing, and facet joints appear degenerative. At L4-5, the posterior disc osteophyte complex, thecal sac is maintained, moderate-severe bilateral neural foramina narrowing, and facet joints appear degenerative. At L5-S1, the posterior disc osteophyte complex, thecal sac is maintained, moderate-severe bilateral neural foramina narrowing, and facet joints appear degenerative. IMPRESSION: Similar multilevel degenerative changes of the lumbar spine with moderate to severe bilateral neural formaina narrowing throughout. No significant central canal narrowing seen.
--- NOTE | 2025-09-22 12:24 | RADIOLOGY REPORT ---
PROCEDURE: MR MRI THORACIC SPINE INDICATION: LOW BACK PAIN Exam Date: 09/21/2025 10:24 AM COMPARISON: None TECHNIQUE: MRI thoracic spine without intravenous contrast. FINDINGS: There is a small syrinx extending from T6 to the mid T7 level well seen on sagittal image 12, series 12. The thoracic cord could be further evaluated with MRI imaging with IV contrast if clinically indicated. No acute vertebral body fracture. Moderate multilevel degenerative disc disease more prominent involving the lower thoracic spine. T2 weighted imaging demonstrates no evidence of discitis or osteomyelitis. Multilevel disc desiccation identified. 4 mm osteophytes of the T5-T6 and T6-T7 levels impinging upon the cord. No central spinal canal stenosis. Cauda equina is normal. No obstructive uropathy. No aortic aneurysm. No pleural effusions. No paraspinal mass. Neural foramen appear patent. Impression: Small syrinx measuring no larger than 3 mm in greatest dimension extending from T6 to T7, best visualized on sagittal image 12, series 12. Further assessment performed with MRI imaging utilizing IV contrast if clinically indicated. No acute vertebral body fracture Moderate multilevel degenerative disc disease without impingement upon the cord.
== END 2025-09-21 23:59 | disposition home or self-care (01) ==
LOC: MRI02 10:04
PROVIDERS: ATTEND Student in an Organized Health Care Education/Training Program
DX: M51.34 Other intervertebral disc degeneration, thoracic region (principal); M48.07 Spinal stenosis, lumbosacral region; M54.50 Low back pain, unspecified; M43.8X6 Other specified deforming dorsopathies, lumbar region; M25.78 Osteophyte, vertebrae
CPT/HCPCS: 72146; 72148